=== PATIENT | female | born 1985 | race Caucasian/White ===

== ENCOUNTER 2025-02-17 10:03 | Emergency (ER) | payer OTHER, SELFPAY ==
[2025-02-17] VITALS (8 sets, daily range): BP systolic 126–157; BP diastolic 62–96; PULSE 76–96; RESP 11–95; TEMP 36.4–36.8; O2SAT 97–100; BMI 38.7
--- NOTE | 2025-02-17 | PATH_ITS ---
[facility] Accession Number: [id number] No. of containers..01 Tissue . 01 Material submitted: . gallbladder - GALLBLADDER . 01 Diagnosis: GALLBLADDER, CHOLECYSTECTOMY: Cholelithiasis with mild chronic cholecystitis and cholesterolosis. No evidence of neoplasm. MRV 02/22/2025 1549 Local . 01 Electronically signed: . Tristin Avila MD, PhD, Pathologist NPI- [id number] . 01 Gross description: . Received in formalin with two patient identifiers, and gallbladder is an 8.0 x 3.4 x 2.5 cm, focally disrupted gallbladder. The serosa is purple-medina and smooth. The stapled cystic duct margin is inked blue. The mucosa is green with diffuse yellow stippling. The wall is 0.3-0.5 cm thick. The lumen contains green, viscous bile and multiple, 0.3-0.7 cm, yellow, bosselated calculi. There is one, 0.4 cm possible lymph node adjacent to the cystic duct. Health Informatics Instructor sections with cystic duct margin, gallbladder wall, and entire possible lymph node are submitted in A1. ([id number]) /MRV 02/18/2025 1247 Local . 01 Pathologist provided ICD-10: K80.60 . 01 CPT . 810187 Specimen Comment: A courtesy copy of this report has been sent to [phone] Performed at: [address] [id number] MD Ace Merion MD Phone: [phone]
--- NOTE | 2025-02-17 10:23 | DI.US.S_ITS ---
PROCEDURE: US ABDOMEN LIMITED INDICATIONS: RUQ pain TECHNIQUE: Real-time scanning was performed of the abdominal and retroperitoneal organs, with image documentation. COMPARISON: None. FINDINGS: Liver: Liver is partially visualized and appears normal in size and homogeneous in echotexture, diffusely hyperechoic consistent with mild diffuse fatty infiltration. Gallbladder: Layering sludge and a nonmobile set of calculi measuring between 5 and 7 mm appear present, with the gallbladder relatively contracted due to absence of NPO status. There is tenderness during sonographic palpation and the gallbladder wall measures up to 3.9 cm. Biliary ducts: Intrahepatic bile ducts are non-dilated. Extrahepatic bile duct caliber measures 6.2 mm. Normal is 6-7 mm or less in diameter, or 10 mm or less post-cholecystectomy. Pancreas: Visualized portions of the pancreas are sonographically normal. Miscellaneous: No free abdominal fluid. IMPRESSION: Probable acute cholecystitis. Quality of visualization is somewhat limited and there appears to be diffuse mild fatty infiltration within the liver. The gallbladder is relatively contracted but there are internal stones, sludge, wall thickening, and tenderness during sonographic palpation of the gallbladder. Acute cholecystitis is likely present. Dictated by: Morgan Shultz M.D. on 02/17/2025 at 11:17 Approved by: Morgan Shultz M.D. on 02/17/2025 at 11:19
[2025-02-17] MEDS: SODIUM CHLORIDE 0.9% 1,000 ML 1000 ML IV (10:55)
[2025-02-17 11:04] LABS: Add Manual Diff / Slide Review NO; Hematocrit 38.7 % (36-46); Hemoglobin 13.4 g/dL (12.0-16.0); Lymphocytes Absolute Auto 2600 /uL (1100-4500); Mean Corpuscular HGB Conc 34.8 % (30-36); Mean Corpuscular Hemoglobin 30.4 PG (26-34); Mean Corpuscular Volume 87.5 fL (80-100); Platelet Count 346 X10^3/uL (150-400)
[2025-02-17 11:21] LABS: Alanine Aminotransferase 51 IU/L (<35); Albumin 4.8 g/dL (3.5-5.0); Albumin Globulin Ratio 1.4 (1.0-2.8); Alkaline Phosphatase 68 U/L (38-126); Blood Urea Nitrogen 16 mg/dL (7-17); Calcium 9.4 mg/dL (8.4-10.2); Carbon Dioxide 25 mmol/L (22-32); Chloride 106 mmol/L (98-107); Estimated Glomerular Filt Rate > 60 mL/min (>60); Globulin 3.5 g/dL (1.7-4.1); Glucose 100 mg/dL (70-99); HEMOLYSIS < 15 (0-50); Lipase 74 U/L (23-300); Potassium 4.0 mmol/L (3.4-5.1); Sodium 140 mmol/L (137-145); Total Protein 8.3 g/dL (6.3-8.2)
--- NOTE | 2025-02-17 12:14 | ED_ITS ---
HPI - Abdominal Pain General Chief Complaint: Abdominal Pain Stated Complaint: Gallbladder pain. 3 days Time Seen by Provider: 02/17/25 10:22 Source: patient Mode of arrival: Family Vehicle History of Present Illness HPI narrative: Ms. Lester is a pleasant 39-year-old female with a past medical history of hypertension on losartan, dermatitis on nightly hydroxyzine who presents to the emergency department with epigastric and right upper quadrant abdominal pain x3 days. Patient states her pain started Friday after eating and has persisted since then. She has decreased appetite and nausea but no vomiting. She has intermittently experienced this pain over the last year but has never had imaging before. She is concerned that it may be her gallbladder. She has never had any surgeries on her abdomen before. She had some coffee and pretzels this morning at 7:30 a.m. and has not had anything to eat or drink since then. She denies fevers, chills, chest pain, shortness of breath, diarrhea, constipation, dysuria. No blood thinner use. Related Data Home Medications ?Medication ?Instructions ?Recorded ?Confirmed acetaminophen 500 mg capsule 1,000 mg PO Q6H PRN fever or pain 02/17/25 02/17/25 hydroxyzine HCl 25 mg tablet 25 mg PO BEDTIME 02/17/25 02/17/25 losartan 25 mg tablet (Cozaar) 25 mg PO DAILY 02/17/25 02/17/25 Allergies Allergy/AdvReac Type Severity Reaction Status Date / Time butalbital (From Fioricet) Allergy Unknown Hives Verified 02/17/25 15:24 shellfish derived Allergy Anaphylaxis Verified 02/17/25 15:24 codeine AdvReac Abdominal Verified 02/17/25 15:24 Pain Review of Systems Review of Systems ROS Unobtainable: All systems reviewed & are unremarkable except as noted in HPI and below Patient History Social History household members: spouse and children Smoking Status: Never smoker alcohol intake: former Smoking Status: Never smoker Exam Narrative Exam Narrative: GENERAL: 39 year old patient appears stated age. Well-developed patient, in no acute distress. HEAD: Atraumatic. Normocephalic. EYES: No scleral icterus. No injection or drainage. ENT: Nose without bleeding, purulent drainage. Throat without erythema, tonsillar hypertrophy or exudate. Airway patent. NECK: Trachea midline. Cervical ROM intact. CARDIOVASCULAR: Regular rate and rhythm. RESPIRATORY: ?Nonlabored respirations. ?Speaking in clear, full sentences. ?Clear to auscultation. Breath sounds equal bilaterally. No wheezes, rales, or rhonchi. ? GASTROINTESTINAL: Abdomen soft, nondistended. There is epigastric tenderness and right upper quadrant tenderness, positive Mascorro's sign. No rebound or guarding. No lower abdominal tenderness. Bowel sounds are present. BACK: No CVA tenderness BL. NEURO: AOx3. ?Clear speech. ?Moves all 4 extremities appropriately. SKIN: No rash or erythema of visible areas Initial Vital Signs Initial Vital Signs: Vital Signs Temperature 97.5 F L 02/17/25 10:19 Pulse Rate 96 H 02/17/25 10:19 Respiratory Rate 17 02/17/25 10:19 Blood Pressure 157/96 H 02/17/25 10:19 Pulse Oximetry 97 02/17/25 10:19 Oxygen Delivery Method Room Air 02/17/25 10:19 Course Orders Ordered: ED Orders 02/17/25 10:23 US abdomen limited Stat 02/17/25 10:49 Complete Blood Count AUTO DIFF Stat Comprehensive Metabolic Panel Stat Lipase Stat Fentanyl (Fentanyl 100 Mcg/2 Ml Inj) 0 mcg IV Q5M PRN PRN Reason: Pain, Moderate (4-6) Hydromorphone HCl (Hydromorphone 1 Mg/Ml Syringe) 0 mg IV Q5MIN PRN PRN Reason: Pain, Moderate (4-6) Hydroxyzine HCl (Hydroxyzine 50 Mg/Ml Inj) 25 mg IM NOW PRN PRN Reason: Pain, Mild (1-3) Lactated Ringer's (Lactated Ringers) 1,000 mls @ 84 mls/hr IV CONT CELINA Last Admin: 02/17/25 15:44 Dose: 84 mls/hr Documented By: BS Meperidine HCl (Meperidine 50 Mg/Ml Inj) 25 mg IV PACUNOW PRN PRN Reason: Moderate pain or shivering Ondansetron HCl (Ondansetron 4 Mg/2 Ml Inj) 4 mg IV NOW PRN PRN Reason: Nausea And Vomiting Last Admin: 02/17/25 17:50 Dose: 4 mg Documented By: TP Oxycodone HCl (Oxycodone Ir 5 Mg Tablet) 5 mg PO PACUNOW PRN PRN Reason: Mild or moderate pain Discontinued Medications Bupivacaine HCl/Epinephrine Bitart (Bupivacaine 0.5% W/ Epi (Pf) 30 Ml Vial) 30 ml INJ NOW ONE Stop: 02/17/25 16:25 Last Admin: 02/17/25 16:25 Dose: 30 ml Documented By: Sodium Chloride (Normal Saline 0.9%) 1,000 mls @ 1,000 mls/hr IV BOLUS ONE Stop: 02/17/25 11:21 Last Infusion: 02/17/25 13:04 Dose: Infused Documented By: Admin: 02/17/25 10:55 Dose: 1,000 mls/hr Documented By: MANPREET Ceftriaxone Sodium 2,000 mg/ (Sodium Chloride) 100 mls @ 200 mls/hr IV NOW ONE Stop: 02/17/25 12:33 Last Infusion: 02/17/25 15:08 Dose: Infused Documented By: Admin: 02/17/25 13:20 Dose: 200 mls/hr Documented By: MANPREET Metronidazole (Flagyl) 500 mg in 100 mls @ 100 mls/hr IV NOW ONE Stop: 02/17/25 13:31 Last Infusion: 02/17/25 15:08 Dose: Infused Documented By: Admin: 02/17/25 14:05 Dose: 100 mls/hr Documented By: MANPREET Lactated Ringer's (Lactated Ringers) 1,000 mls @ 42 mls/hr IV CONT CELINA Ondansetron HCl (Ondansetron 4 Mg/2 Ml Inj) 4 mg IV NOW ONE Stop: 02/17/25 10:23 Last Admin: 02/17/25 11:09 Dose: Not Given Documented By: AISHA Ondansetron HCl (Ondansetron 4 Mg/2 Ml Inj) 4 mg IV NOW PRN PRN Reason: Nausea And Vomiting Ondansetron HCl (Ondansetron 4 Mg/2 Ml Inj) 4 mg IV NOW ONE Stop: 02/17/25 12:33 Last Admin: 02/17/25 15:08 Dose: Not Given Documented By: MANPREET Vital Signs Vital signs: Vital Signs - 8 hr 02/17/25 15:28 02/17/25 17:24 02/17/25 17:29 Temperature 98.1 F 98.2 F Pulse Rate 88 76 92 H Respiratory Rate 16 95 H 18 Blood Pressure 141/85 H 126/90 128/62 Pulse Oximetry 100 98 Oxygen Delivery Method Room Air Room Air 02/17/25 17:34 02/17/25 17:40 02/17/25 17:45 Temperature Pulse Rate 82 81 91 H Respiratory Rate 16 18 12 Blood Pressure 128/64 134/71 132/72 Pulse Oximetry 97 97 98 Oxygen Delivery Method Room Air Room Air 02/17/25 17:50 Temperature 98.0 F Pulse Rate 90 Respiratory Rate 11 L Blood Pressure 129/66 Pulse Oximetry 97 Oxygen Delivery Method MDM - Abdominal Pain Medical Records Medical records narrative: None available for review Lab Data 02/17/25 10:49 02/17/25 10:49 Labs: Lab Results 02/17/25 Range/Units 10:49 WBC 7.1 (4.5-11.0) X10^3/uL RBC 4.42 (4.0-5.2) X10^6/uL Hgb 13.4 (12.0-16.0) g/dL Hct 38.7 (36-46) % MCV 87.5 (80-100) fL MCH 30.4 (26-34) PG MCHC 34.8 (30-36) % RDW 13.6 (11.6-14.8) % Plt Count 346 (150-400) X10^3/uL Neut % (Auto) 55.0 (50-75) % Lymph % (Auto) 36.7 (25-40) % [place] % (Auto) 5.5 (3-14) % Eos % (Auto) 1.8 L (2-4) % Baso % (Auto) 1.0 (0-2) % Neut # (Auto) 3900 (6354-6454) /uL Lymph # (Auto) 2600 (4790-3576) /uL [place] # (Auto) 400 (0-900) /uL Eos # (Auto) 100 (0-450) /uL Baso # (Auto) 100 (0-100) /uL Sodium 140 (137-145) mmol/L Potassium 4.0 (3.4-5.1) mmol/L Chloride 106 (98-107) mmol/L Carbon Dioxide 25 (22-32) mmol/L BUN 16 (7-17) mg/dL Creatinine 0.73 (0.52-1.04) mg/dL Estimated GFR > 60 (>60) mL/min BUN/Creatinine Ratio 21.9 (6-22) Glucose 100 H (70-99) mg/dL Calcium 9.4 (8.4-10.2) mg/dL Total Bilirubin 0.4 (0.2-1.3) mg/dL AST 35 (14-36) IU/L ALT 51 H (<35) IU/L Alkaline Phosphatase 68 (38-126) U/L Total Protein 8.3 H (6.3-8.2) g/dL Albumin 4.8 (3.5-5.0) g/dL Globulin 3.5 (1.7-4.1) g/dL Albumin/Globulin Ratio 1.4 (1.0-2.8) Lipase 74 (23-300) U/L Point of care testing: Point of Care Testing Test Results Negative Urine Dip Bedside Urine Glucose Negative Bedside Urine Bilirubin - Negative Bedside Urine Ketone - Negative Urine Specific [place] 1.015 Bedside Urine Occult Blood +/- Bedside Urine pH 6.0 Bedside Urine Protein - Negative Bedside Urine Urobilinogen - Negative Bedside Urine Nitrite - Negative Bedside Urine Leukocytes - Negative Esterase Imaging Data Abd US: Radiologist's Impression: PROCEDURE: US ABDOMEN LIMITED INDICATIONS: RUQ pain TECHNIQUE: Real-time scanning was performed of the abdominal and retroperitoneal organs, with image documentation. COMPARISON: None. FINDINGS: Liver: Liver is partially visualized and appears normal in size and homogeneous in echotexture, diffusely hyperechoic consistent with mild diffuse fatty infiltration. Gallbladder: Layering sludge and a nonmobile set of calculi measuring between 5 and 7 mm appear present, with the gallbladder relatively contracted due to absence of NPO status. There is tenderness during sonographic palpation and the gallbladder wall measures up to 3.9 cm. Biliary ducts: Intrahepatic bile ducts are non-dilated. Extrahepatic bile duct caliber measures 6.2 mm. Normal is 6-7 mm or less in diameter, or 10 mm or less post-cholecystectomy. Pancreas: Visualized portions of the pancreas are sonographically normal. Miscellaneous: No free abdominal fluid. IMPRESSION: Probable acute cholecystitis. Quality of visualization is somewhat limited and there appears to be diffuse mild fatty infiltration within the liver. The gallbladder is relatively contracted but there are internal stones, sludge, wall thickening, and tenderness during sonographic palpation of the gallbladder. Acute cholecystitis is likely present. Dictated by: Morgan Shultz M.D. on 02/17/2025 at 11:17 Approved by: Morgan Shultz M.D. on 02/17/2025 at 11:19 [facility] Narrative Medical decision making narrative: 39-year-old female with a past medical history of hypertension on losartan, dermatitis on nightly hydroxyzine who presents to the emergency department with epigastric and right upper quadrant abdominal pain x3 days. Differential diagnosis includes but is not limited to cholelithiasis, cholecystitis, choledocholithiasis, gastritis, esophagitis, pancreatitis, etc. On exam the patient is in no acute distress, nontoxic appearing, vital signs appropriate. She does have right upper quadrant epigastric tenderness, positive Mascorro's sign. Lab work and ultrasound obtained prior to my evaluation, ultrasound is concerning for acute cholecystitis, labs reveal normal total bilirubin, normal lipase, normal white blood cell count 7.1. Sodium 140, potassium 4.0, BUN 16 creatinine 0.73. Glucose 100. Very slight elevation ALT 51. Ultrasound reveals diffuse mild fatty infiltration within the liver, gallbladder is relatively contracted, with Internal stone sludge wall thickening and tenderness. Patient has received 1 L IV fluid so far, we will add on Zofran. She declines pain medication as she is nervous to use opioids. 1230: Spoke with gen surg, Dr. Garnica. He will come down and see the patient. We will order ceftriaxone and metronidazole. General surgery saw patient at the bedside, plan to take the patient to the OR either today or tomorrow. She is stable for transfer to the floor at this time all questions answered. Discharge Plan Departure Patient Disposition: Admitted to Surgery Clinical Impression: Acute cholecystitis Prescriptions: No Action losartan [Cozaar] 25 mg tablet 25 mg PO DAILY hydroxyzine HCl 25 mg tablet 25 mg PO BEDTIME acetaminophen 500 mg capsule 1,000 mg PO Q6H PRN (Reason: fever or pain)
--- NOTE | 2025-02-17 13:04 | PM.HP.IH.1 ---
History of Present Illness History of Present Illness Date Patient Seen: 02/17/25 Time Patient Seen: 13:04 Chief complaint: Gallbladder pain. 3 days Narrative: 39-year-old woman with epigastric pain since Friday. She has had similar pain in the past but never quite as severe as this. She came to the emergency room today. Labs are normal but an ultrasound shows acute cholecystitis. She had some pretzels this morning around 7 and drank some coffee with cream at that time. [facility] Social History Smoking Status: Never smoker Meds Home Medications and Allergies Allergies Allergy/AdvReac Type Severity Reaction Status Date / Time acetaminophen (From Fioricet) Allergy Hives Verified 02/17/25 10:19 butalbital (From Fioricet) Allergy Hives Verified 02/17/25 10:19 caffeine (From Fioricet) Allergy Hives Verified 02/17/25 10:19 shellfish derived Allergy Anaphylaxis Verified 02/17/25 10:19 codeine AdvReac Abdominal Verified 02/17/25 10:19 Pain Exam Vital Signs (past 8 hours): - 02/17/25 10:19 Temperature 97.5 F L Pulse Rate 96 H Respiratory Rate 17 Blood Pressure 157/96 H Pulse Oximetry 97 Oxygen Delivery Method Room Air Oxygen Delivery Method Room Air Narrative Exam Narrative: Tender to palpation in the right upper quadrant and epigastrium Objective Labs 02/17/25 10:49 02/17/25 10:49 Labs: Laboratory Results - last 24 hr 02/17/25 10:49 WBC 7.1 RBC 4.42 Hgb 13.4 Hct 38.7 MCV 87.5 MCH 30.4 MCHC 34.8 RDW 13.6 Plt Count 346 Neut % (Auto) 55.0 Lymph % (Auto) 36.7 [place] % (Auto) 5.5 Eos % (Auto) 1.8 L Baso % (Auto) 1.0 Neut # (Auto) 3900 Lymph # (Auto) 2600 [place] # (Auto) 400 Eos # (Auto) 100 Baso # (Auto) 100 Sodium 140 Potassium 4.0 Chloride 106 Carbon Dioxide 25 BUN 16 Creatinine 0.73 Estimated GFR > 60 BUN/Creatinine Ratio 21.9 Glucose 100 H Calcium 9.4 Total Bilirubin 0.4 AST 35 ALT 51 H Alkaline Phosphatase 68 Total Protein 8.3 H Albumin 4.8 Globulin 3.5 Albumin/Globulin Ratio 1.4 Lipase 74 Assessment & Plan Assessment and plan (1) Acute cholecystitis: Status: Acute Plan We discussed the pathophysiology of acute cholecystitis. If she is cleared by anesthesia and there is OR availability we could potentially get her to the OR for a laparoscopic cholecystectomy this afternoon. Otherwise we can admit her for pain control and a clear liquid diet and make her NPO at midnight and take her for a laparoscopic cholecystectomy tomorrow afternoon. Time-Based Coding :: [TOTAL MINUTES] spent with patient and on the chart (including review of chart, obtaining history, exam, reviewing outside data, placing orders, documenting exam and treatment plan, and counseling patient) on [DATE]. PROFEE [employer] Applications Specialist Document charge(s): No
[2025-02-17] MEDS: cefTRIAXone 2,000 MG in SODIUM CHLORIDE 0.9% 100 ML 200 MG IV (13:20)
[2025-02-17] MEDS: metroNIDAZOLE 500 MG/100 ML PIGGYBACK 100 MG IV (14:05)
[2025-02-17] MEDS: LACTATED RINGERS 1,000 ML 84 ML IV (15:44)
--- NOTE | 2025-02-17 16:10 | SUR.OPER ---
Supine on padded OR bed, head on pillow, arms secured on padded arm boards at <90 degrees abduction, legs uncrossed, safety belt at thigh, tape over blanket over lower legs. footboard secured at pt feet. Final positioning done by provider
--- NOTE | 2025-02-17 17:28 | PM.OP.1 ---
Operative Date/Time/Diagnoses Date of procedure: 02/17/25 Time of procedure: 17:28 Pre-op diagnosis: Acute cholecystitis Post-op diagnosis: same Procedure & Clinicians Procedure: Laparoscopic cholecystectomy Same procedure(s) as scheduled: Yes Surgeon: Mariusz Garnica Assisted?: No Anesthesia Type: General Operative Notes Findings: Intrahepatic liver and hepatomegaly Applied: none Estimated Blood Loss (mL): 15 Procedure in detail: The patient was given preoperative antibiotics. The patient was brought to the operating room and placed on the table in the supine position. General endotracheal anesthesia was induced. The abdomen was prepped and draped. A time-out was performed. We made a 1 cm infraumbilical incision. We dissected down to the base of the umbilical stalk using cautery. We grasped the umbilical stalk with a Ene[place] clamp to elevate the abdominal wall. We scored the fascia in the midline with cautery. We pierced the peritoneum with a Peon clamp. The Harper port was placed and the abdomen was insufflated to 15 mmHg. A 5 mm 30 degree laparoscopic was inserted. There was no evidence of any injury from the entry. Next, we placed 5 mm ports in the subxiphoid position and right upper quadrant at the midclavicular line and anterior axillary line. The patient was then positioned in reverse Trendelenburg and the table was tilted to the left. The patient had hepatomegaly and the gallbladder was nearly enveloped by the liver. The gallbladder was grasped at the dome and retracted cephalad. We then dissected the cystic structures with a combination of hook cautery and blunt dissection. We obtained a critical view. We placed clips on the cystic duct and artery and divided the cystic duct and artery sharply between the clips. The gallbladder was then dissected off the liver and placed in a specimen retrieval bag. We irrigated the right upper quadrant and all the aspirate returned clear. We then removed the 5 mm ports under direct vision we removed the Harper port. We then injected some local into the fascia and closed the fascia with 2 interrupted 0 Vicryl sutures. The skin incisions were closed with 4-0 Monocryl and Steri-Strips were applied. Band-Aids were applied over the Steri-Strips. Specimen: Gallbladder and contents Complications: none Post-operative Condition: stable Disposition: PACU
[2025-02-17] MEDS: ONDANSETRON 4 MG/2 ML INJ IV (17:50)
== END 2025-02-17 15:12 ==
PROVIDERS: Emergency Medicine; Surgery; Emergency Provider Physician Assistant
PROC: 0FT44ZZ Resection of Gallbladder, Percutaneous Endoscopic Approach (ICD-10-PCS; CPT 47562; principal; 2025-02-17 15:30)
DX: K81.0 Acute cholecystitis (principal)
CPT/HCPCS: 36415; 76705; 80053; 81003; 81025; 83690; 85025; J0330; J0696; J1100; J1171; J1885; J2250; J2405; J2704; J3010; J3490; J7030; J7050; J7120